=== PATIENT | female | born 1995 | race American Indian/Alaskan Native ===

== ENCOUNTER 2018-04-03 06:39 | Emergency (ER) | payer MEDICAID ==
[2018-04-03] MEDS ORDERED: NACL 0.9% 1000 ML 1,000 ML IV ONE (06:50)
[2018-04-03 07:23] LABS: Bilirubin,Urine NEG (Negative); Blood,Urine NEG (Negative); Color,Urine Yellow (Yellow); Mucus,Urine 3+ /HPF
[2018-04-03 07:27] LABS: Hematocrit 38.2 % (30.3-42.9); Mean Corpuscular HGB Conc 34 % (30-34); Mean Corpuscular Volume 93 fl (79-97); Platelet Count 310 K/mm3 (140-440); Red Blood Count 4.12 M/mm3 (3.65-5.03); Red Cell Distribution Width 12.1 % (13.2-15.2)
[2018-04-03 08:34] LABS: Total Cells Counted 100
[2018-04-03 08:38] LABS: Anisocytosis 1+; Platelet Estimate Consistent w Auto
[2018-04-03 09:04] LABS: Alanine Aminotransferase 5 units/L (7-56); Albumin 4.2 g/dL (3.9-5); BUN/Creatinine Ratio 18; Blood Urea Nitrogen 9 mg/dL (7-17); Calcium 8.4 mg/dL (8.4-10.2); Hemolysis Index 7
--- NOTE | 2018-04-03 09:15 | XRay Report ---
ROUTINE CHEST, TWO VIEWS: HISTORY: Cough. The trachea, heart, mediastinal contour, lung tinsley and bony thorax are unremarkable. IMPRESSION: Unremarkable chest x-ray.
--- NOTE | 2018-04-03 10:18 | Emergency Department Report ---
ED Abdominal Pain HPI - General Chief Complaint: Abdominal Pain Stated Complaint: ABD PAIN Time Seen by Provider: 04/03/18 08:09 Source: patient Mode of arrival: Ambulatory Limitations: No Limitations - History of Present Illness Initial Comments: 23-year-old female presents with periumbilical pain for "several months." Patient states there is a knot present above her umbilicus. Patient denies vomiting or diarrhea, fever. The patient also reports that she coughed up blood this morning. Denies shortness of breath or ongoing cough. No further episodes since this morning. Denies night sweats. MD Complaint: abdominal pain -: month(s) (3) Location: periumbilical Radiation: none Migration to: no migration Severity: mild Severity scale (0 -10): 9 Quality: sharp Consistency: intermittent Improves With: nothing Worsens With: nothing Associated Symptoms: denies: nausea, vomiting, diarrhea, fever, hematemesis, hematochezia, melena - Related Data Previous Rx's Medication Instructions Recorded Last Taken Type Dicyclomine [Bentyl] 20 mg PO QID PRN #20 tablet 04/03/18 Unknown Rx Allergies Allergy/AdvReac Type Severity Reaction Status Date / Time No Known Allergies Allergy Verified 04/03/18 08:28 ED Review of Systems ROS: Stated complaint: ABD PAIN Other details as noted in HPI Comment: All other systems reviewed and negative Constitutional: denies: chills, fever ENT: denies: throat pain Respiratory: other (reports hemoptysis). denies: shortness of breath Cardiovascular: denies: chest pain Gastrointestinal: abdominal pain. denies: nausea, vomiting, diarrhea, constipation Genitourinary: denies: dysuria, frequency, hematuria ED Past Medical Hx - Past Medical History Previous Medical History?: No - Surgical History Past Surgical History?: No - Social History Smoking Status: Never Smoker - Medications Home Medications: Home Medications Medication Instructions Recorded Confirmed Last Taken Type Dicyclomine [Bentyl] 20 mg PO QID PRN #20 tablet 04/03/18 Unknown Rx ED Physical Exam - General Limitations: No Limitations General appearance: alert, in no apparent distress - Head Head exam: Present: atraumatic, normocephalic - Eye Eye exam: Present: normal appearance - ENT ENT exam: Present: mucous membranes moist - Neck Neck exam: Present: normal inspection - Respiratory Respiratory exam: Present: normal lung sounds bilaterally. Absent: respiratory distress, wheezes, rales, rhonchi, stridor - Cardiovascular Cardiovascular Exam: Present: regular rate, normal rhythm - GI/Abdominal GI/Abdominal exam: Present: soft, hernia (reducible umbilical hernia present). Absent: distended - Extremities Exam Extremities exam: Present: normal inspection. Absent: pedal edema, calf tenderness - Neurological Exam Neurological exam: Present: alert, oriented X3 - Psychiatric Psychiatric exam: Present: normal affect, normal mood - Skin Skin exam: Present: warm, dry, intact, normal color ED Course Vital Signs 04/03/18 06:47 Temperature 97.9 F Pulse Rate 89 Respiratory 20 Rate Blood Pressure 112/72 O2 Sat by Pulse 100 Oximetry ED Medical Decision Making - Lab Data Result diagrams: 04/03/18 07:11 04/03/18 07:11 - Radiology Data Radiology results: report reviewed, image reviewed - Medical Decision Making 23-year-old female reports a several month history of abdominal pain with a knot present. The patient has reducible umbilical hernia present. Labs unremarkable. Also reports one episode of hemoptysis this morning. O2 sats normal, lung exam normal, patient respiratory distress. The patient denies recent URI symptoms, ongoing cough, fever or night sweats. Chest x-ray negative, d-dimer negative. Unclear the cause of this isolated episode of hemoptysis. However, does not sound like it was severe, and patient currently at baseline in no distress. Appears nontoxic. Will give outpatient follow-up fo r hernia repair. Return precautions given. - Differential Diagnosis hernia, pneumonia, lung mass, PE Critical care attestation.: If time is entered above; I have spent that time in minutes in the direct care of this critically ill patient, excluding procedure time. ED Disposition Clinical Impression: Umbilical hernia, Hemoptysis, unspecified Disposition: - TO HOME OR SELFCARE Is pt being admited?: No Condition: Stable Instructions: Umbilical Hernia (ED) Prescriptions: Dicyclomine [Bentyl] 20 mg PO QID PRN #20 tablet PRN Reason: abdominal pain Referrals: [facility] [Other] - 3-5 Days HELLEN VELÁZQUEZ DO [Staff Physician] - 3-5 Days Time of Disposition: 10:32
[2018-04-03 10:44] VITALS: BP 110/70
== END 2018-04-03 10:43 | disposition home or self-care (01) ==
LOC: ED 06:39
DX: K42.9 Umbilical hernia without obstruction or gangrene (principal); R04.2 Hemoptysis
CPT/HCPCS: 36415; 71046; 80053; 81001; 83690; 84703; 85007; 85025; 85379; 99284; J7030

== ENCOUNTER 2018-05-01 11:30 | Day surgery (SDC) | payer MEDICAID ==
[~2018-05-01 11:30] MED LIST: ANCEF/STERILE WATER 2 GM/20 ML 2 GM/20 ML SYRINGE IV NR; LACTATED RINGERS 1,000 ML IV SCH; NEURONTIN PO SCH
[2018-05-01] MEDS ORDERED: MARCAINE 0.25% INFILTRATI ONE ×2 (13:01→14:51)
[2018-05-01] MEDS ORDERED: VERSED ONE (13:01)
[2018-05-01] MEDS ORDERED: SUBLIMAZE ONE (13:01)
[2018-05-01] MEDS ORDERED: DILAUDID IV PRN (14:33)
--- NOTE | 2018-05-01 14:33 | Anesthesia Consultation ---
Anesthesia Consult and Med Hx Date of service: 05/01/18 - Airway Anesthetic Teeth Evaluation: Good ROM Head & Neck: Adequate Mental/Hyoid Distance: Adequate Mallampati Class: Class III Intubation Access Assessment: Possibly Difficult - Pulmonary Exam CTA: Yes - Cardiac Exam Cardiac Exam: RRR - Pre-Operative Health Status ASA Pre-Surgery Classification: ASA2 Proposed Anesthetic Plan: General Nerve Block: TAP - Pulmonary Hx Smoking: Yes (2 black and milds per day) Hx Asthma: Yes (childhood) Hx Respiratory Symptoms: No - Cardiovascular System Hx Hypertension: No - Central Nervous System CVA: No Hx Back Pain: Yes (LUMBAR) Hx Psychiatric Problems: No - Gastrointestinal Hx Gastroesophageal Reflux Disease: No - Endocrine Hx Renal Disease: No Hx Liver Disease: No Hx Insulin Dependent Diabetes: No Hx Thyroid Disease: No - Other Systems Hx Obesity: No - Additional Comments Anesthesia Medical History Comments: No hx anesthetic complications.
--- NOTE | 2018-05-01 14:33 | Anesthesia Day of Surgery ---
Anesthesia Day of Surgery - Day of Surgery Patient Examined: Yes Patient H&P Reviewed: Yes Patient is NPO: Yes
[2018-05-01] MEDS ORDERED: XYLOCAINE 2%/ EPI 1:200,000 INFILTRATI ONE (14:51)
[2018-05-01] MEDS ORDERED: DIPRIVAN 10 MG/ML IV ONE (15:07)
[2018-05-01] MEDS ORDERED: ZEMURON IV ONE (15:07)
[2018-05-01] MEDS ORDERED: XYLOCAINE MPF 2% ONE (15:07)
[2018-05-01] MEDS ORDERED: DILAUDID ONE (15:07)
[2018-05-01] MEDS ORDERED: NACL 0.9% IR ONE (15:45)
[2018-05-01] MEDS ORDERED: BLOXIVERZ ONE (15:47)
[2018-05-01] MEDS ORDERED: ROBINUL ONE (15:47)
[2018-05-01] MEDS ORDERED: DECADRON ONE (15:50)
[2018-05-01] MEDS ORDERED: ZOFRAN ONE (15:50)
--- NOTE | 2018-05-01 16:03 | Short Stay Summary ---
Short Stay Documentation Date of service: 05/01/18 - History H&P: obtained from office - Allergies and Medications Current Medications: Allergies No Known Allergies Allergy (Verified 04/27/18 10:09) Home Medications Medication Instructions Recorded Confirmed Last Taken Type No Known Home Medications [No 04/27/18 04/27/18 Unknown History Reported Home Medications] Active Medications Gabapentin (Neurontin) 600 mg PO PREOP HILARIA Stop: 05/01/18 23:45 Last Admin: 05/01/18 12:40 Dose: 600 mg Documented by: Hydromorphone HCl (Dilaudid) 0.5 mg IV Q10MIN PRN PRN Reason: Pain , Severe (7-10) Cefazolin Sodium (Ancef/Sterile Water 2 Gm/20 Ml) 2 gm in 20 mls @ 80 mls/hr IV PREOP NR; Protocol Stop: 05/01/18 23:45 Lactated Ringer's (Lactated Ringers) 1,000 mls @ 75 mls/hr IV DIRECT HILARIA Last Admin: 05/01/18 12:50 Dose: 75 mls/hr Documented by: - Physical exam General appearance: no acute distress Integumentary: no rash, no growths, no abnormal pigmentation Lungs: Normal air movement Gastrointestinal: normal, no distended - Brief post op/procedure progress note Date of procedure: 05/01/18 (Dictation: [id number]) Pre-op diagnosis: symptomatic umbo hernia Post-op diagnosis: other (symptomatic ventral hernia) Procedure: open ventral hernia repair with mesh Fluids 400cc Anesthesia: GETA Findings: 1cm fascial defect with herniated fat tissue. Surgeon: AUGIE BURGOS Estimated blood loss: minimal Pathology: none Condition: stable - Disposition Condition at discharge: Stable Disposition: DC-01 TO HOME OR SELFCARE Short Stay Discharge Plan Activity: other (no driving until cleared by surgeon) Diet: regular Wound: open to air, keep clean and dry, other (may shower tomorrow. Pat dry wound. Apply ice pack to wound for 10-15min/4-5 times a day) Special Instructions: no heavy lifting (or strenuous activity for 6 weeks) Follow up with: DARIN NICHOLS MD [Primary Care Provider] - 7 Days AUGIE BURGOS MD [Staff Physician] - 14 Days Forms: Outpatient Surgery DC Inst. Prescriptions: HYDROcodone/APAP 5-325 [[place] 5/325] 1 each PO Q6HR PRN #30 tablet PRN Reason: Pain
[2018-05-01 16:26] VITALS: BP 107/67
--- NOTE | 2018-05-02 12:25 | Operative Report ---
PREOPERATIVE DIAGNOSIS: Symptomatic umbilical hernia. POSTOPERATIVE DIAGNOSIS: Symptomatic ventral hernia. PROCEDURE: Open repair with mesh. ATTENDING PHYSICIAN: Ebony Berg MD ANESTHESIA: General. ESTIMATED BLOOD LOSS: Minimal. FLUIDS: 400 mL. FINDINGS: 1 cm fascial defect in the midline superior to the umbilicus. There was fat herniating through that was incarcerated. SPECIMENS: None. IMPLANTS: Small Ventralex Mesh. DRAINS: None. COMPLICATIONS: None. DISPOSITION: Stable transferred to Recovery Room. INDICATIONS FOR PROCEDURE: This is a 23-year-old female who presents to the office with complaints of pain and a bulge at the umbilicus. This has been present for quite some time and the patient would like to have it addressed. Procedure, risks, benefits were explained to the patient. Risks included but were not limited to infection, bleeding, pain, injury to the surrounding structures, possible recurrence, possible need for further procedures in the future. The patient understood and consented. OPERATIVE NOTE: The patient was brought to the operating room and placed in supine position. After adequate general anesthesia was established, the patient was prepped and draped in the usual sterile fashion. Antibiotics had been administered prior to start of the case. SCDs were in place. I thoroughly palpated this area preoperatively. I was able to identify the incarcerated mass. Now that she was relaxed, it was easier to examine and see that the location of the fascial defect and mass were actually superior to the base of the umbilicus. This was more difficult to tell in the office due to her discomfort with the examination. Therefore, I made a transverse incision about 2 cm superior to the base of the umbilicus. Dissection was carried down to the fascia. We immediately identified the mass that was coming through a 1 cm fascial defect. The surrounding adhesions, attachments were divided with electrocautery. The mass was completely viable and reduced. I freed up all the underlying attachments to make sure we had a nice wide open space for the mesh and then inserted a Ventralex small [place] mesh. It went in very easily. It appeared to lay flat. We closed the fascial defect incorporating the straps of the mesh with a #1 Prolene suture. We closed that with a running stitch. No local was injected as she had already received a TAP block and 3-0 Vicryl was used to close the subcutaneous tissue, 4-0 Monocryl was used to close the skin with subcuticular stitch. Skin was cleaned and dried. Dermabond was placed. The patient tolerated the procedure well. There were no complications. All counts were correct at the end of the case. JOB# [id number] MEHREEN/JACQUELINE
== END 2018-05-01 17:25 | disposition home or self-care (01) ==
LOC: OR 11:30
PROVIDERS: ATTEND Surgery
DX: K42.0 Umbilical hernia with obstruction, without gangrene (principal); J45.909 Unspecified asthma, uncomplicated; Z98.891 History of uterine scar from previous surgery; Z98.890 Other specified postprocedural states; Z79.899 Other long term (current) drug therapy; Z80.3 Family history of malignant neoplasm of breast; Z80.0 Family history of malignant neoplasm of digestive organs
CPT/HCPCS: 49587; 64450; 81025; C1781; J0690; J1100; J1170; J2250; J2405; J2704; J2710; J3010; J7120

== ENCOUNTER 2019-02-20 09:48 | Emergency (ER) | payer OTHER, MEDICAID ==
[2019-02-20 10:03] VITALS: BP 122/59
[2019-02-20] MEDS ORDERED: IBUPROFEN 800 MG TAB PO ONE (11:47)
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
== END 2019-02-20 13:57 | disposition home or self-care (01) ==
LOC: ED 09:48
DX: S16.1XXA Strain of muscle, fascia and tendon at neck level, initial encounter (principal); M54.9 Dorsalgia, unspecified; J45.909 Unspecified asthma, uncomplicated; V49.49XA Driver injured in collision with other motor vehicles in traffic accident, initial encounter; Y93.89 Activity, other specified; Y92.488 Other paved roadways as the place of occurrence of the external cause; Y99.8 Other external cause status
CPT/HCPCS: 72040; 72070; 99283